=== PATIENT | female | born 1975 | race Hispanic/Latino ===

== ENCOUNTER 2022-07-20 10:34 | Emergency (ER) | payer OTHER ==
[~2022-07-20] VITALS: Ht 162.6 cm; Wt 65.8 kg
[2022-07-20] MEDS ORDERED: GOLYTELY SOLU4000 M1 PO (11:37)
== END 2022-07-20 11:51 | disposition home or self-care (01) ==
LOC: FSED 10:38
DX: K59.00 Constipation, unspecified (principal); M54.50 Low back pain, unspecified; Z85.89 Personal history of malignant neoplasm of other organs and systems
CPT/HCPCS: 99282

== ENCOUNTER 2022-07-28 12:21 | Emergency (ER) | payer OTHER ==
[~2022-07-28] VITALS: Ht 162.6 cm; Wt 61.8 kg
[~2022-07-28 12:21] MED LIST: GOLYTELY SOLU4000 M1 PO
[2022-07-28] MEDS ORDERED: KETOROLAC TROMETHAMINE 30 MG/ML VIAL IV STA (13:16)
[2022-07-28] MEDS ORDERED: Morphine 2mg Syringe 2 MG/ML SYR IV ONE (13:30)
[2022-07-28] MEDS ORDERED: Morphine 4mg INJECTION 4 MG/ML INJ ONE (13:37)
[2022-07-28] MEDS ORDERED: CYCLOBENZAPRINE5 MG PO (15:11)
[2022-07-28] MEDS ORDERED: PREDNISONE20 MG PO (15:11)
[2022-07-28] MEDS ORDERED: KETOROLAC TROME10 MG PO (15:11)
== END 2022-07-28 15:20 | disposition home or self-care (01) ==
LOC: FSED 13:11
DX: M54.42 Lumbago with sciatica, left side (principal); Z85.89 Personal history of malignant neoplasm of other organs and systems
CPT/HCPCS: 72100; 96372; 99283; J1885; J2270